=== PATIENT | female | born 1985 | race Caucasian/White ===

== ENCOUNTER 2020-09-21 13:57 | Outpatient (CLI) | payer OTHER, SELFPAY ==
--- NOTE | ~2020-09-21 | US_ITS ---
EXAMINATION: US pelvic complete w TV DATE: 09/21/2020 14:39 INDICATION: Irregular excessive menstruation Comparison:No prior studies for comparison. TECHNIQUE: Multiple transabdominal and endovaginal sonographic images of the pelvis performed. FINDINGS: The uterus measures 9.4 x 5.4 x 4.3. Uterus is retroflexed. The endometrial complex measure s 11 mm. There are nabothian cysts. The right ovary measures 3 x 2.1 x 1.7 cm and the left ovary measures 2.6 x 2.3 x 1.3 cm. There are small follicles in each ovary. Normal doppler signal in both ovaries. There is no free fluid in the pelvis. There are no abnormal masses seen on either side. IMPRESSION: 1. Unremarkable pelvic ultrasound Reviewed, dictated and finalized at location B.
== END 2020-09-21 13:58 | disposition home or self-care (01) ==
PROVIDERS: PCP Physician Assistant; Visit Provider Physician Assistant
DX: N92.0 Excessive and frequent menstruation with regular cycle (principal)
CPT/HCPCS: 76830; 76856

== ENCOUNTER 2025-04-01 14:29 | Emergency (ER) | payer SELFPAY ==
[2025-04-01 14:45] VITALS: BP 135/71; PULSE 88; RESP 18; TEMP 36.6; O2SAT 97
--- NOTE | 2025-04-01 14:56 | ED_ITS ---
HPI - URI/Sore Throat General Chief Complaint: Upper Respiratory Infection Stated Complaint: Sinus Time Seen by Provider: 04/01/25 14:57 Source: patient, RN notes reviewed and old records reviewed Mode of arrival: ambulatory Limitations: no limitations History of Present Illness HPI Narrative: 39 year old female with complaints of sore throat ear pain and sinus pressure and drainage since Friday with fevers up to 101.3F. Patient reports that she has been taking Tylenol and Theraflu for her symptoms, using Afrin nasal spray and Zyrtec for nasal congestion. Patient denies any shortness of breath with SAO2 97% on room air MD elicited complaint: sore throat, rhinorrhea, nasal congestion, sinus pain and other (ear pain) Pertinent past history: other (bronchitis) Onset (ago): week(s) (1) Severity: moderate Able to tolerate fluids by mouth: Yes Treatments prior to arrival: acetaminophen and other (zyrtec and theraflu and some Afrin nasal spray) Related Data Home Medications ?Medication ?Instructions ?Recorded ?Confirmed ?Last Taken ?Type buprenorphine 8 mg-naloxone 2 mg film 04/01/25 Unknow n History sublingual film Allergies Allergy/AdvReac Type Severity Reaction Status Date / Time sulfamethoxazole Allergy Mild nausea Verified 04/01/25 15:02 trimethoprim Allergy Mild nausea Verified 04/01/25 15:02 Penicillins Allergy Unknown rash Verified 04/01/25 15:02 TRAMADOL HCL Allergy Mild dizziness Uncoded 04/19/14 15:32 Review of Systems Review of Systems: CONSTITUTIONAL: Reports malaise, chills, sweats, or fever. EYES: Denies visual changes, redness, or discharge. ENT: Reports rhinorrhea, congestion, sinus pain,bilateral otalgia and sore throat. CARDIOVASCULAR: Denies chest pain, palpitations, or edema. RESPIRATORY: Reports cough.? Denies dyspnea. GASTROINTESTINAL: Denies abdominal pain, nausea, vomiting, diarrhea SKIN: Denies rash or itching. MUSCULOSKELETAL: Denies myalgia. NEUROLOGIC: reports some headache. All systems reviewed & are unremarkable except as noted in HPI and below PMFSH Past Medical History Medical History (Updated 04/04/25 @ 07:39 by Susu Hensley, DEMIAN) Back pain with sciatica Depression Bronchitis Surgical History Surgical History (Updated 04/04/25 @ 07:38 by Susu Hensley APRN) Previous section x2 Social History Social History (Updated 04/04/25 @ 07:40 by Susu Hensley APRN) Smoking status: Former smoker Alcohol intake: unknown Last use: past use of opiates on suboxone Living arrangements: with family Gender identity (if verbalized by the patient): Female Comments At time of signature, agree with nursing past medical, surgical, social and family history. There is no relevant family history pertinent to the presenting complaint Exam Narrative: GENERAL: Well-appearing, well-nourished, and in no acute distress. HEAD: Normocephalic EYES: PERRLA, conjunctivae clear ENT: Nares clear, turbinates edematous and erythematous, clear discharge, sinus pressure and headache,. Mucous membranes moist. TM pearly razo with dull light reflex bilaterally; no tragal tenderness. Oropharynx erythematous without lesions. Tonsils not enlarged and without exudate, no drooling, no hoarseness, no trismus, uvula midline.post nasal discharge NECK: Supple. No lymphadenopathy CHEST: Clear to auscultation, breath sounds equal. No wheezing, rhonchi, rales, or stridor. No respiratory distress, speaks in full sentences.occasional dry cough SAO2 97% on room air HEART: Regular rate and rhythm. No murmur heard. SKIN: Warm, dry, no rash. NEURO: Alert and oriented x3. PSYCH: Normal mood and affect Course Course Level of Care: Express Care Visit Vital Signs Vital signs: Vital Signs Temperature 36.6 C 04/01/25 14:45 Pulse Rate 88 04/01/25 14:45 Respiratory Rate 18 04/01/25 14:45 Blood Pressure 135/71 04/01/25 14:45 Pulse Oximetry 97 04/01/25 14:45 Oxygen Delivery Room Air 04/01/25 14:45 Temperature 36.6 C 04/01/25 14:45 Pulse Rate 88 04/01/25 14:45 Respiratory Rate 18 04/01/25 14:45 Blood Pressure 135/71 04/01/25 14:45 Pulse Oximetry 97 04/01/25 14:45 Oxygen Delivery Room Air 04/01/25 14:45 [facility] MDM Narrative Medical decision making narrative: Patient is COVID positive and appropriate for outpatient care and follow up. Anticipatory guidance and reasons to seek care in the ED reviewed with understanding verbalized. Differential Diagnosis Differential Diagnosis: Differential diagnostic considerations for upper respiratory infection include upper respiratory infection, croup, otitis media, sinusitis, viral infection, bronchitis, influenza, pharyngitis, strep, uvulitis.? Lab Data MDM Lab Attestation statement: I personally reviewed the patient's lab results. Lab results narrative: Influenza A&B negative strep screen negative,culture sent, COVID positive Labs: Lab Results 04/01/25 04/01/25 Range/Units 15:03 15:14 POC Influenza A Ag Negative Negative (Negative) POC Influenza B Ag Negative Negative (Negative) POC SARS CoV-2 Ag Positive Positive (Negative) POC Grp A Strep Screen Negative (Negative) reviewed Critical Care Time Critical Care Time Critical Care Time: No Discharge Plan Discharge Clinical Impression: COVID-19 Patient Disposition: Home Condition: Stable Instructions: Antibiotic Form, How to Recover from COVID-19 at Home (ED) Additional Instructions: Increase fluids especially juices and water [id number] cough and cold medicine of your choice for your symptoms Tylenol for any fevers, pain Zyrtec, Claritin or Terri daily may include Coricidin decongestant heat to the face 20-30 minutes 4-6 times a day for pain Salt water gargles, throat lozenges or throat sprays as desired If your symptoms persist, change or worsen significantly before you can contact your personal physician then please, without delay, go to the emergency department for further evaluation. Follow-up with PCP in 7-10 days or sooner if needed Follow up with PCP soon in regards to your blood pressure which is elevated above threshold for referral. Blood pressure above 120/80 may indicate pre- hypertension.135/71 COVID-19 DISCHARGE The following recommendations have been made by the CDC and local Health Departments, regarding COVID-19: Those individuals with mild cases of COVID-19 can generally be discontinued from isolation, 5 days AFTER the onset of symptoms AND the resolution of fever for 24hrs (without the use of fever-reducing medications) Those individuals who were asymptomatic, and tested positive, are discontinued from isolation 10 days AFTER their first positive COVID-19 test Those individuals with SEVERE to CRITICAL illness or immunocompromised diseases may require up to 20 days of home isolation or hospitalization Majority of mild to moderate cases can be treated at home, without hospitalization or prescription medications You do not need a negative test result to return to work/school, assuming the above recommendations have been met and you are not symptomatic. At this time, return to work/school notes will not be provided. Guidelines from the local Health Department, CDC, and workplace are expected to be followed. All individuals in the household need to remained quarantined for up to 14 days if asymptomatic OR 10 days after the start of symptoms. Everyone in the home DOES NOT require testing, they are presumed positive and should quarantine as directed. Treating symptoms for mild to moderate cases may include: Tylenol, Flonase/nasal spray, OTC cold/flu medications recommended from your provider or any necessary prescription medications provided at your visit or from your PCP IF YOU TESTED NEGATIVE If you are symptomatic with reason to believe you have COVID-19, there is a high possibility your rapid test may not have detected the virus. Rapid testing is dependent on timing and viral load and may have a false- negative reading You should follow appropriate guidelines regarding quarantine, hand washing, mask wearing, and social distancing You may be sent for PCR testing as an outpatient to the [facility] testing site Common Adult Symptoms: Fever/chills Cough Shortness of breath Fatigue, muscle aches Headache Loss of taste/smell Sore throat, congestion, runny nose GI symptoms (nausea, vomiting, diarrhea) Common Pediatric Symptoms Cough Fever GI symptoms (diarrhea, upset stomach, nausea, vomiting) Symptoms may differ in severity however, most cases do not require hospitalization. WHEN TO SEEK ER EVALUATION/TREATMENT Severe/persistent shortness of breath or difficulty breathing Elevated, persistent fevers without resolution with fever-reducing medications Chest pain Extreme fatigue/lethargy Complications of pre-existing disease Patient Language: Dutch Prescriptions: No Action buprenorphine-naloxone 8-2 mg film Follow-up/Referrals: Laya,BIBI Multani [Primary Care Provider, Family Practice] Stand Alone Forms: Work/School Release IP Time of Disposition: 15:20 Quality Mitzy Coma Scale Eyes: Open Verbal: Oriented and Alert Motor: Follows Commands [place] Coma Total Score: 15
[2025-04-01 15:16] LABS: EDSTREPNEGPOS1 Negative (Negative)
[2025-04-01 15:17] LABS: EDCOVIDSCREEN Positive (Negative); EDINFLUASCREEN Negative (Negative); EDINFLUBSCREEN Negative (Negative)
[2025-04-01 15:17] LABS: EDCOVIDSCREEN Positive (Negative); EDINFLUASCREEN Negative (Negative); EDINFLUBSCREEN Negative (Negative)
== END 2025-04-01 15:38 | disposition home or self-care (01) ==
PROVIDERS: Emergency Provider Registered Nurse; PCP Physician Assistant
DX: U07.1 COVID-19 (principal); Z87.891 Personal history of nicotine dependence
CPT/HCPCS: 87081; 87426; 87804; 87880; 99213; G0463